=== PATIENT | male | born 1960 | race Caucasian/White ===

== ENCOUNTER 2016-07-14 11:28 | Day surgery (SDC) | payer BC ==
[2016-07-12 09:34] VITALS: BMI 27.9
[~2016-07-14 11:28] MED LIST: LACTATED RINGERS 1,000 ML IV SCH; LIDOCAINE 1% 20 ML VIAL (10MG/ML) FOR IV START INTRADERMA PRN
[2016-07-14 12:23] VITALS: TEMP 98.3
[2016-07-14] MEDS ORDERED: MIDAZOLAM 2 MG/2 ML VIAL ONE (13:00)
[2016-07-14] MEDS ORDERED: fentaNYL (PF) 50 MCG/ML 2 ML AMP ONE (13:00)
[2016-07-14] MEDS ORDERED: PROPOFOL 10 MG/ML 20 ML VIAL IV ONE (13:00)
--- NOTE | 2016-07-14 13:29 | P.PCN ---
Date of Procedure: 07/14/16 Procedure(s) Performed: Procedure: Colonoscopy. Preoperative diagnosis: Screening for neoplasia. Postoperative diagnosis: Minimal sigmoid diverticulosis with no evidence of acute diverticulitis, strictures, polyps or cancer. Preparation: HalfLytely prep. Sedation: Was provided by anesthesia. Brief clinical history: The patient is a 55-year-old male who is referred for this evaluation for screening for neoplasia. He had history of complicated diverticular disease and had segmental resection of his bowel in the past. He had multiple colonoscopies over the years the last was around 9 years ago. He believes he had polyps removed in the past as well. At this time, he has no abdominal complaints, bleeding or anemia. Procedure: With the patient on his left lateral decubitus position and after informed consent and adequate sedation, the perianal area was inspected and it did not show any fissures or fistulas. There were no masses felt on digital rectal examination. The Olympus CFQ 160L video colonoscope was then inserted in the rectum in the usual fashion and advanced to the cecum. There was occasional small diverticular orifice noted in the sigmoid but I saw no evidence of acute diverticulitis or strictures. The mucosa appeared healthy. No polyps or tumors were seen or any obvious pathology. I retroflexed endoscope in the rectum before the endoscope was withdrawn. The patient tolerated the procedure well. Plan: The patient was reassured. With his history of polyps, I recommended a repeat exam in 5 years. He will follow up with you as planned.
[2016-07-14 13:44] VITALS: RESP 16
[2016-07-14 13:59] VITALS: BP 123/85; PULSE 68
== END 2016-07-14 14:10 | disposition home or self-care (01) ==
LOC: ORWHC2ENDO 11:28
DX: Z12.11 Encounter for screening for malignant neoplasm of colon (principal); K57.30 Diverticulosis of large intestine without perforation or abscess without bleeding; Z87.19 Personal history of other diseases of the digestive system; Z90.49 Acquired absence of other specified parts of digestive tract; I10 Essential (primary) hypertension; M19.90 Unspecified osteoarthritis, unspecified site; Z79.899 Other long term (current) drug therapy
CPT/HCPCS: J2250; J3010; J2704; G0121; 45378; 99153

== ENCOUNTER → 2016-07-29 | Outpatient (CLI) | payer BC ==
--- NOTE | 2016-07-29 15:01 | MR ---
EXAMINATION TYPE: MR iac wo/w con DATE OF EXAM: 07/29/2016 2:26 PM COMPARISON: NONE HISTORY: 55-year-old male with hearing loss right ear TECHNIQUE: Multiplanar, multisequence images of the brain and brainstem were acquired before and aft er administration of 15 mL IV MultiHance. Diffusion weighted imaging was performed. Additional cone d-down sequences through the internal auditory canals and posterior cranial fossa before and after IV contrast administration. FINDINGS: Diffusion weighted images demonstrate no evidence of an acute ischemic lesion in the brain. T2/FLAIR weighted sequences show scattered moderate burden of bright white matter change with approxi mately 35 foci on the left 25 foci on the right located in the subcortical and deep white matter of e ach cerebral hemisphere. A small focus of increased signal is also present within the right paramedi an rikki. Small area of encephalomalacia and gliosis along the posterior left temporal lobe, axial image 11 sug gesting area of previous vascular or traumatic insult. Midline structures demonstrate normal morphology. The craniocervical junction is normal. There is mild cerebral atrophy. The ventricles are of normal caliber. There is no evidence of an acute intracranial hemorrhage, infarct, mass, mass-effect or an extra-axia l fluid collection. There is no cerebellopontine angle mass. The right vertebral artery is dominant. The internal auditory canals are symmetric. Brainstem and skull base abnormalities are not seen. Post contrast images demonstrate no evidence of pathologic enhancement in the posterior cranial fossa or the internal auditory canals. There is no abnormal enhancement of the labyrinths. There is mild mucosal thickening within the ethmoid air cells and maxillary sinuses. Slight leftward nasal septal deviation. Globes are intact. IMPRESSION: 1. Moderate scattered foci of T2 bright white matter change, nonspecific, but likely representing chr onic small vessel ischemic disease. 2. No acute intracranial abnormality seen. There is a small area of encephalomalacia posterior left t emporal lobe suggesting a site of prior cortical infarct or traumatic insult. 3. No specific abnormality on acoustic MRI. 4. Mild chronic ethmoid and maxillary sinus disease.
== END | disposition home or self-care (01) ==
LOC: RADMRIMAIN 13:28
PROVIDERS: ATTEND Otolaryngology
DX: H91.91 Unspecified hearing loss, right ear (principal); J32.0 Chronic maxillary sinusitis
CPT/HCPCS: 70553; A9577

== ENCOUNTER 2022-04-12 12:13 | Day surgery (SDC) | payer BC ==
[2022-04-08 15:37] VITALS: BMI 25.8
[~2022-04-12 12:13] MED LIST changes: +LIDOCAINE 1% (10MG/ML) FOR IV START INTRADERMA PRN; -LIDOCAINE 1% 20 ML VIAL (10MG/ML) FOR IV START INTRADERMA PRN
[2022-04-12 12:44] VITALS: TEMP 97.2
[2022-04-12] MEDS ORDERED: PROPOFOL 10 MG/ML 20 ML VIAL IV ONE (14:19)
--- NOTE | 2022-04-12 14:40 | P.PCN ---
Date of Procedure: 04/12/22 Procedure(s) Performed: BRIEF HISTORY: Patient is a 61-year-old pleasant white male scheduled for an elective colonoscopy as a part of evaluation of prior history of colon polyps. PROCEDURE PERFORMED: Colonoscopy. PREOPERATIVE DIAGNOSIS: History of colon polyps. IV sedation per Anesthesia. PROCEDURE: After informed consent was obtained, the patient, was brought into the endoscopy unit. IV sedation was administered by Anesthesia under continuous monitoring. Digital rectal examination was normal. Initially the Olympus CF-160 flexible video colonoscope was then inserted in the rectum, gradually advanced into the cecum without any difficulty. Careful examination was performed as the scope was gradually being withdrawn. Ileocecal valve and the appendiceal orifice were visualized and appeared normal. Prep was excellent. Mucosa of the cecum, ascending colon, transverse colon, descending colon, sigmoid colon, and rectum appeared normal. At her sigmoid diverticulosis seen. Retroflexion was performed in the rectum and small internal hemorrhoids were seen. The patient tolerated the procedure well. IMPRESSION: Normal-appearing colon from rectum to cecum with no evidence of colitis or colorectal neoplasia . Scattered sigmoid diverticulosis and small internal hemorrhoids RECOMMENDATIONS: Findings of this examination were discussed with the patient as well as his family..He was advised to be a high-fiber diet. Recommend repeat colonoscopy in 10 years..
[2022-04-12 14:44] VITALS: RESP 16
[2022-04-12 14:57] VITALS: BP 147/88; PULSE 74
== END 2022-04-12 15:19 | disposition home or self-care (01) ==
LOC: ORWHC2ENDO 12:13
PROVIDERS: ATTEND Internal Medicine Gastroenterology
DX: Z12.11 Encounter for screening for malignant neoplasm of colon (principal); K57.30 Diverticulosis of large intestine without perforation or abscess without bleeding; K64.8 Other hemorrhoids
CPT/HCPCS: 45378; J2704

== ENCOUNTER → 2024-06-10 | Outpatient (CLI) | payer MEDICARE ==
--- NOTE | 2024-06-10 09:49 | CTL ---
EXAMINATION TYPE: CT Low Dose Lung DATE OF EXAM ORDERED: 06/10/2024 COMPARISON: None CLINICAL INDICATION: Male, 63 years old with history of Z87.891 personal hx tobacco use; MAGGIEHguerita history of tobacco use, Lung cancer screening, History of Smoking/tobacco use. TECHNIQUE: Low dose computed tomography scan was performed through the chest at 1 mm thick sections a nd reconstructed images in multiple planes at 1 mm and [address] DLP: [address] CTDI: 1.84 mGy Automated exposure control for dose reduction was used. CT DIAGNOSTIC QUALITY: Satisfactory FINDINGS: A subpleural 1 mm pulmonary micronodule seen in the upper lobes too small to characterize b ut have a benign appearance. There is a 3 mm pulmonary micronodule right upper lobe image 112 series 4. No consolidative pneumonia. No pleural effusion or pneumothorax. Assessment of the upper abdomen limited by artifact. Multilevel hypertrophic and degenerative changes of the spine. Assessment for lymphadenopathy limited by noncontrast technique. Grossly no bulky adenopathy identifi ed. There is mild aneurysmal dilation of the ascending aorta measuring up to 4.2 cm. There is extensive coronary artery calcification. Calcification near the aortic root and valve incide ntally noted. IMPRESSION: 1. Pulmonary micronodules too small to characterize but likely benign. 2. Mild ascending thoracic aortic aneurysm measuring 4.2 cm. 3. Extensive coronary artery calcification. CT LUNG RAD AND CT CHEST RECOMMENDATION: Lung-Rad 2 Benign Appearance or Behavior: Continue annual sc reening with LDCT in 12 months. [facility], , 06/10/2024 9:47 AM
== END | disposition home or self-care (01) ==
LOC: RADCTMAIN 08:58
PROVIDERS: ATTEND Family Medicine
DX: Z12.2 Encounter for screening for malignant neoplasm of respiratory organs (principal); F17.210 Nicotine dependence, cigarettes, uncomplicated; I71.21 Aneurysm of the ascending aorta, without rupture; I25.10 Atherosclerotic heart disease of native coronary artery without angina pectoris; R91.8 Other nonspecific abnormal finding of lung field
CPT/HCPCS: 71271